=== PATIENT | male | born 1980 | race Caucasian/White ===

== ENCOUNTER → 2017-03-17 13:43 | Outpatient (POV) | payer OTHER, SELFPAY | PROVIDERS: Family Provider Family Medicine; PCP Family Medicine; Visit Provider Dermatology | DX: Z00.00 Encounter for general adult medical examination without abnormal findings (principal) ==

== ENCOUNTER → 2019-12-18 13:27 | Outpatient (CLI) | payer OTHER, SELFPAY ==
--- NOTE | 2019-12-18 13:35 | XR_ITS ---
PROCEDURE: XR HAND RT MIN 3V CLINICAL INDICATION: RT THUMB PAIN Cut hand with class 2 years ago in the thumb area complaining of chronic right thumb pain COMPARISON: No exams were available for comparison FINDINGS: No fracture or dislocation. No lytic or blastic change. There is normal mineralization. There is moderate sclerosis and narrowing of the 1st carpometacarpal joint. There are no opaque or semi opaque foreign bodies adjacent to the 1st metacarpal. The proximal distal phalanx of the thumb appear normal. The hand is otherwise unremarkable. There is minor narrowing of the radiocarpal joint. 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 Zafar Garg MD 12/18/2019 14:30 Dr. Zafar Garg MD in [place] 12/18/2019 14:30
== END ==
PROVIDERS: PCP Family Medicine; Visit Provider Family Medicine
DX: M79.644 Pain in right finger(s) (principal)
CPT/HCPCS: 73130